=== PATIENT | female | born 1975 | race Two or more races ===

== ENCOUNTER 2016-12-30 20:47 | Emergency (ER) | payer OTHER ==
[2016-12-30 20:57] VITALS: RESP 16; TEMP 98.1
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
[2016-12-30] MEDS ORDERED: ACETAMINOPHEN 500 MG TAB PO ONE (21:35)
[2016-12-30 22:15] VITALS: BP 102/88; PULSE 76; O2SAT 95
== END 2016-12-30 22:14 | disposition home or self-care (01) ==
LOC: EDUNIT#
DX: S29.9XXA Unspecified injury of thorax, initial encounter (principal); F17.200 Nicotine dependence, unspecified, uncomplicated; X58.XXXA Exposure to other specified factors, initial encounter

== ENCOUNTER 2017-01-24 15:25 | Emergency (ER) | payer MEDICAID ==
--- NOTE | 2017-01-24 15:34 | EDPHY ---
H & P Time Seen by Provider: 01/24/17 15:29 HPI/ROS: CHIEF COMPLAINT: Fall, loss of consciousness, paresthesias HISTORY OF PRESENT ILLNESS: The patient is a 41-year-old female who presents emergency department with multiple complaints after sustaining a fall. She was on a tailgate and fell back approximately 3 feet. She states she struck her head lost consciousness. It is unclear exactly how long she was unconscious. Upon waking she complained of numbness and tingling in both hands and feet. Upon arrival to the emergency department she complains of numbness in her right hand and left foot. She has no weakness. EMS reports patient was hemodynamically stable. Patient denies headache or neck pain at this time. No chest pain or shortness of breath. No abdominal pain. No hip pain or discomfort with movement of her extremities per report. Glucose was 95. REVIEW OF SYSTEMS: My complete review of systems is negative except as mentioned in the HPI. Past Medical/Surgical History: Bipolar disorder, thyroid disease Past surgical history: Includes hysterectomy, tubal ligation Social History: Patient smokes. She denies drugs or alcohol. Smoking Status: Current every day smoker Physical Exam: Vitals noted GENERAL: Well-appearing, in no acute distress, alert. HEAD: No evidence of trauma. EYES: PERRLA, EOMI, normal to inspection. ENT: Airway intact, no dental or oral injury, no malocclusion, normal external examination. NECK: The trachea is midline. There is no crepitus. The C-spine is nontender. RESPIRATORY: Clear to auscultation bilaterally, no rales, rhonchi or wheezing. There is no crepitus or palpable rib fractures. CVS: Regular rate and rhythm, no rubs, murmurs, or gallops. ABDOMEN: Soft, nontender, nondistended, normal bowel sounds, no bruising or abrasions. Pelvis: Stable. No tenderness palpation. Hips full range of motion. BACK: Normal to inspection, no spinal tenderness, no spinal step off, no notable bruising or abrasions. SKIN: Normal color, warm, dry. No pallor or diaphoresis. EXTREMITIES: Right upper extremity: Atraumatic. No visible signs of trauma. No tenderness palpation. Neurovascular intact distally. Left upper extremity: Atraumatic. No visible signs of trauma. No tenderness palpation. Neurovascular intact distally. Right lower extremity: Atraumatic. No visible signs of trauma. No tenderness palpation. Neurovascular intact distally. Left lower extremity: Patient's left lower extremity appears normal. There is no deformity to her foot or leg. She has mild tenderness to palpation diffusely over her left foot. Neurovascular intact distally. NEURO/PSYCH: Alert and oriented x 3, GCS 15, normal mood and affect, normal motor sensory exam. (Patient's exam was unremarkable. However, the patient does still state that her right hand and left foot "feels asleep." Constitutional: Initial Vital Signs Temperature (C) 37.1 C 01/24/17 15:42 Heart Rate 61 01/24/17 15:42 Respiratory Rate 18 01/24/17 15:42 Blood Pressure 130/80 H 01/24/17 15:42 O2 Sat (%) 100 01/24/17 15:42 O2 Delivery Mode Nasal Cannula O2 (L/minute) 2 Allergies/Adverse Reactions: morphine Allergy (Verified 01/24/17 15:45) Home Medications: Medication Instructions Recorded Synthroid 12/30/16 Medical Decision Making - Diagnostics Imaging Results: Imaging Impressions Cervical Spine CT 01/24/17 15:29 Impression: There is no acute abnormality identified on this unenhanced CT evaluation. UNENHANCED CT SCAN OF THE CERVICAL SPINE Technique: A multidetector unenhanced helical CT scan was obtained from the clivus caudally through the upper thoracic spine, with images reformatted at 1.50 mm increments, and are reviewed in soft tissue, bone, and lung windows. Parasagittal and paracoronal reconstructed images are reviewed on the workstation. The DFOV is 13.5 cm. A dose reduction protocol was used. Comparison Study: None. Findings: The cervical vertebral body heights, posterior alignments, and the disk spaces are preserved. There is a mild levocervical curvature, which may reflect some underlying muscle spasm. There is no acute fracture, or facet malalignment. The interspinous distances are normal. The craniocervical junction is normal. The predental space, and the atlantoaxial lateral mass alignment is normal. The base and the tip of the dens are normal. There is no central canal stenosis, neural foraminal impingement, or focal disk herniation identified. There is no prevertebral or epidural hematoma identified. The prevertebral soft tissues are normal, as are the lung apices. Impression: 1. There is no acute cervical osseous abnormality identified. 2. Mild levocervical scoliosis, which may reflect some underlying muscle spasm. If there is further clinical concern regarding the patient's paresthesias, correlative MR imaging could be considered, if otherwise not contraindicated. Findings were discussed with ESTER FRANCO MD at 16:00, on 01/24/2017. Foot X-Ray 01/24/17 15:29 Impression: There is no acute osseous abnormality. If there is further concern regarding patient's knee pain, MR imaging could be considered. LEFT FOOT (3 Views, at 4:01 PM): The point of maximal tenderness has not been indicated in the clinical history. Bone mineralization is preserved. There is a transversely-oriented mildly irregular lucency through the midportion of the medial great toe sesamoid bone, which could represent a fracture or a bipartite variant; clinical correlation is suggested. There are some minor degenerative changes at the first toe MTP joint. There is a small plantar calcaneal enthesophyte. The tarsometatarsal alignment is anatomic. There is no ankle joint effusion appreciated. Impression: Fracture versus bipartite variant involving the great toe medial sesamoid bone. Clinical correlation is suggested. Head CT 01/24/17 15:29 Impression: There is no acute abnormality identified on this unenhanced CT evaluation. UNENHANCED CT SCAN OF THE CERVICAL SPINE Technique: A multidetector unenhanced helical CT scan was obtained from the clivus caudally through the upper thoracic spine, with images reformatted at 1.50 mm increments, and are reviewed in soft tissue, bone, and lung windows. Parasagittal and paracoronal reconstructed images are reviewed on the workstation. The DFOV is 13.5 cm. A dose reduction protocol was used. Comparison Study: None. Findings: The cervical vertebral body heights, posterior alignments, and the disk spaces are preserved. There is a mild levocervical curvature, which may reflect some underlying muscle spasm. There is no acute fracture, or facet malalignment. The interspinous distances are normal. The craniocervical junction is normal. The predental space, and the atlantoaxial lateral mass alignment is normal. The base and the tip of the dens are normal. There is no central canal stenosis, neural foraminal impingement, or focal disk herniation identified. There is no prevertebral or epidural hematoma identified. The prevertebral soft tissues are normal, as are the lung apices. Impression: 1. There is no acute cervical osseous abnormality identified. 2. Mild levocervical scoliosis, which may reflect some underlying muscle spasm. If there is further clinical concern regarding the patient's paresthesias, correlative MR imaging could be considered, if otherwise not contraindicated. Findings were discussed with ESTER FRANCO MD at 16:00, on 01/24/2017. Knee X-Ray 01/24/17 15:57 Impression: There is no acute osseous abnormality. If there is further concern regarding patient's knee pain, MR imaging could be considered. LEFT FOOT (3 Views, at 4:01 PM): The point of maximal tenderness has not been indicated in the clinical history. Bone mineralization is preserved. There is a transversely-oriented mildly irregular lucency through the midportion of the medial great toe sesamoid bone, which could represent a fracture or a bipartite variant; clinical correlation is suggested. There are some minor degenerative changes at the first toe MTP joint. There is a small plantar calcaneal enthesophyte. The tarsometatarsal alignment is anatomic. There is no ankle joint effusion appreciated. Impression: Fracture versus bipartite variant involving the great toe medial sesamoid bone. Clinical correlation is suggested. Cervical Spine MRI 01/24/17 16:07 Impression: Basically normal MRI of the cervical spine, without evidence for acute injury or significant degenerative change. Findings and recommendations discussed with Ester Franco M.D., at 1800 hours, on January 24, 2017. Final report concurs with initial preliminary interpretation. ED Course/Re-evaluation: I met EMS on arrival. I took report from the information management specialist. Full trauma team activation. Dr. Cast was also present in the room. I discussed the plan with the patient and answered all her questions. Patient will have a head and C-spine CT. X-ray of her left foot will be performed. Initial i-STAT: Sodium 144, potassium 3.7, chloride 106, glucose 81, BUN 24, creatinine 1.0, hematocrit 41, anion gap 18 I re-evaluate the patient when she returned from CT imaging. She had no new paresthesias or weakness. Neuro exam was nonfocal. She complained of mild knee pain. Knee x-ray was ordered. Head and C-spine CT: Please refer the dictated report by Dr. Ricardo Enriquez. I spoke with Dr. Enriquez on the phone. He saw no acute injury. He agreed with the plan for MRI imaging. This was ordered. Patient's laboratory studies were unremarkable. Hematocrit was normal. Coags were normal. negative. 1645: The patient complained the mild discomfort. She is given Toradol 30 mg IV. Knee x-ray: Please refer the dictated report. No acute disease noted. Left foot x-ray: Please refer the dictated report. Possible fracture verses variant. 18 10: Please refer the dictated report by Dr. Barrios. The patient's cervical MRI was negative. No acute disease noted. I discussed all the results with the patient. She had no focal neurologic deficit on exam. Her C-collar was removed. On reexamination no respiratory distress. Her abdomen was benign. No back TTP. Patient was placed in a L Carlos boot. (see xray result above). She will follow up with Orthopedics. She is aware of the need for close follow-up. She is given crutches and instruction on use. The patient was given warnings prior to leaving. She will return with worsening symptoms. Differential Diagnosis: My differential includes but is not limited to spinal injury, disc herniation, cord injury, subarachnoid hemorrhage, subdural hematoma, epidural hematoma, foot fracture, foot contusion - Data Points Laboratory Results: Laboratory Results 01/24/17 15:00 01/24/17 15:00 01/24/17 01/24/17 01/24/17 15:22 15:00 15:00 WBC RBC Hgb POC Hgb 13.9 gm/dL gm/dL (12.6-16.3) Hct POC Hct 41 % % (38-47) MCV MCH MCHC RDW Plt Count MPV Neut % (Auto) Lymph % (Auto) [place] % (Auto) Eos % (Auto) Baso % (Auto) Nucleat RBC Rel Count Absolute Neuts (auto) Absolute Lymphs (auto) Absolute Monos (auto) Absolute Eos (auto) Absolute Basos (auto) Absolute Nucleated RBC Immature Gran % Immature Gran # PT INR APTT POC Sodium 144 mEq/L mEq/L (134-144) Sodium 143 mEq/L mEq/L (134-144) POC Potassium 3.7 mEq/L mEq/L (3.3-5.0) Potassium 3.9 mEq/L mEq/L (3.5-5.2) POC Chloride 106 mEq/L mEq/L (97-110) Chloride 108 mEq/L mEq/L (97-110) Carbon Dioxide 23 mEq/l mEq/l (22-31) Anion Gap 12 mEq/L mEq/L (8-16) POC BUN 24 mg/dL H mg/dL (7-23) BUN 25 mg/dL H mg/dL (7-23) Creatinine 0.9 mg/dL mg/dL (0.6-1.0) POC Creatinine 1.0 mg/dL mg/dL (0.6-1.0) Estimated GFR > 60 Glucose 78 mg/dL mg/dL (70-100) POC Glucose 81 mg/dL mg/dL (70-100) Calcium 9.4 mg/dL mg/dL (8.5-10.4) Beta HCG, Qual NEGATIVE Ethyl Alcohol < 10 mg/dL mg/dL (0-10) 01/24/17 01/24/17 15:00 15:00 WBC 5.85 10^3/uL 10^3/uL (3.80-9.50) RBC 4.28 10^6/uL 10^6/uL (4.18-5.33) Hgb 14.0 g/dL g/dL (12.6-16.3) POC Hgb Hct 40.2 % % (38.0-47.0) POC Hct MCV 93.9 fL fL (81.5-99.8) MCH 32.7 pg pg (27.9-34.1) MCHC 34.8 g/dL g/dL (32.4-36.7) RDW 12.1 % % (11.5-15.2) Plt Count 256 10^3/uL 10^3/uL (150-400) MPV 9.9 fL fL (8.7-11.7) Neut % (Auto) 38.2 % L % (39.3-74.2) Lymph % (Auto) 46.7 % H % (15.0-45.0) [place] % (Auto) 10.1 % % (4.5-13.0) Eos % (Auto) 4.3 % % (0.6-7.6) Baso % (Auto) 0.5 % % (0.3-1.7) Nucleat RBC Rel Count 0.0 % % (0.0-0.2) Absolute Neuts (auto) 2.24 10^3/uL 10^3/uL (1.70-6.50) Absolute Lymphs (auto) 2.73 10^3/uL 10^3/uL (1.00-3.00) Absolute Monos (auto) 0.59 10^3/uL 10^3/uL (0.30-0.80) Absolute Eos (auto) 0.25 10^3/uL 10^3/uL (0.03-0.40) Absolute Basos (auto) 0.03 10^3/uL 10^3/uL (0.02-0.10) Absolute Nucleated RBC 0.00 10^3/uL 10^3/uL (0-0.01) Immature Gran % 0.2 % % (0.0-1.1) Immature Gran # 0.01 10^3/uL 10^3/uL (0.00-0.10) PT 12.7 SEC SEC (12.0-15.0) INR 0.96 (0.83-1.16) APTT 30.6 SEC SEC (23.0-38.0) POC Sodium Sodium POC Potassium Potassium POC Chloride Chloride Carbon Dioxide Anion Gap POC BUN BUN Creatinine POC Creatinine Estimated GFR Glucose POC Glucose Calcium Beta HCG, Qual Ethyl Alcohol Point of Care Test Results: 01/24/17 15:22 POC Sodium 144 POC Potassium 3.7 POC Chloride 106 POC BUN 24 H POC Creatinine 1.0 POC Glucose 81 Departure - Departure Disposition: Home, Routine, Self-Care Clinical Impression: Contusion of foot, left Qualifiers: Encounter type: initial encounter Qualified Code(s): S90.32XA - Contusion of left foot, initial encounter Cervical strain, acute Qualifiers: Encounter type: initial encounter Qualified Code(s): S16.1XXA - Strain of muscle, fascia and tendon at neck level, initial encounter Condition: Good Instructions: Foot Fracture in Adults (ED), Cervical Strain (ED) Additional Instructions: The x-ray of her knee showed no broken bones. Your left foot showed a possible fracture of the sesamoid bone. This could also be a normal variant. You been placed in the splint and need close follow-up with Orthopedics for this. Your CT scan of the head and neck were normal. Your MRI of the cervical spine was normal. Return with worsening symptoms. Referrals: Neftali Newton MD [Medical Doctor] - 5-7 days, call for appt.
[2017-01-24 15:38] LABS: % IMMATURE GRANULYOCYTES 0.2 % (0.0-1.1); ABSOLUTE IMMATURE GRANULOCYTES 0.01 10^3/uL (0.00-0.10); ADD DIFF? NO; ADD MORPH? NO; ADD SCAN? NO; ATYPICAL LYMPHOCYTE FLAG 0 (0-99); FRAGMENT RBC FLAG 0 (0-99); HEMATOCRIT 40.2 % (38.0-47.0); LEFT SHIFT FLG 0 (0-99); LIPEMIA HEMOLYSIS FLAG 90 (0-99); MEAN CELL HEMOGLOBIN 32.7 pg (27.9-34.1); MEAN CELL HEMOGLOBIN CONCENTR. 34.8 g/dL (32.4-36.7); MEAN CELL VOLUME 93.9 fL (81.5-99.8); MEAN PLATELET VOLUME 9.9 fL (8.7-11.7); PLATELET CLUMPS FLAG 0 (0-99); PLATELET COUNT 256 10^3/uL (150-400); RED BLOOD CELL COUNT 4.28 10^6/uL (4.18-5.33); RED CELL DISTRIBUTION WIDTH 12.1 % (11.5-15.2)
[2017-01-24 15:48] LABS: INR 0.96 (0.83-1.16); PROTIME(PATIENT) 12.7 SEC (12.0-15.0)
[2017-01-24 15:49] LABS: APTT 30.6 SEC (23.0-38.0)
[2017-01-24 15:55] LABS: ANION GAP 12 mEq/L (8-16); CALCIUM 9.4 mg/dL (8.5-10.4); CARBON DIOXIDE 23 mEq/l (22-31); CHLORIDE 108 mEq/L (97-110); CREATININE 0.9 mg/dL (0.6-1.0); ETHANOL SERUM < 10 mg/dL (0-10); GLOMERULAR FILTRATION RATE > 60; GLUCOSE 78 mg/dL (70-100); POTASSIUM 3.9 mEq/L (3.5-5.2); SODIUM 143 mEq/L (134-144)
[2017-01-24 18:50] VITALS: BP 120/72; PULSE 74; RESP 16; TEMP 98.1; O2SAT 97
--- NOTE | 2017-01-28 09:42 | GCON ---
[f rep st] CONSULTATION DATE OF CONSULTATION: 01/24/2017 CHIEF COMPLAINT: Fall with loss of consciousness and paresthesias. HISTORY OF PRESENT ILLNESS: This is a 41-year-old female who presented to the trauma bay at [facility] as a full trauma activation. Per EMS and patient report, 2 hours prior to h er presentation she was standing on the back of what appeared to be a tailgate and fell back approxi mately 3 feet. She does state that she struck her head and did lose consciousness. It is unclear h ow long she was unconscious, but the patient said that it was multiple minutes. Upon waking, she co mplained of numbness and tingling in both hands and feet on both sides. Given her complaint, she wa s made a full trauma activation. The patient had really no reasons why she waited 2 hours to call E [facility] after falling. In the trauma bay, I met the patient on arrival. Upon being transferred to the [facility], I performed a primary assessment. She was protecting her airway. She had adequate b reathing and adequate circulation. Other than complaining of headache and paresthesias within her r ight upper and left lower extremity, she had really no other complaints. She stated that the parest hesias started after she woke up after falling and that she had complete intact sensation, although she had tingling in these extremities. PAST MEDICAL HISTORY: Bipolar disease and thyroid. PAST SURGICAL HISTORY: Hysterectomy and tubal ligation. SOCIAL HISTORY: Patient is a smoker. She denies drugs or alcohol. Currently is in a [facility] . REVIEW OF SYSTEMS: A full 10-point review of systems was performed. PHYSICAL EXAM: VITAL SIGNS: Temperature is 37.1 heart rate 97, blood pressure 130/80, and she is 9 6% on room air. GENERAL: She is well-appearing, in no acute distress. HEAD: No evidence of traum a. EYES: Pupils are equal, round, and reactive to light with extraocular movements intact, with no scleral icterus. ENT: Her airway is intact. No dental or oral injury. Mucous membranes are mois t. NECK: The trachea is midline. There is no crepitus. The C-spine is nontender to posterior mid line compression. RESPIRATORY: She is clear to auscultation bilaterally with no rales or wheezing. There is no crepitus or palpable abnormalities. CV: She has a regular rate and rhythm with no mu rmurs or rubs. ABDOMEN: Obese, soft, nondistended, nontender. PELVIS: Stable to both AP and late ral compression. BACK: Normal to inspection. SKIN: Normal color, warm and dry. [facility] No tenderness. She does complain of paresthesias within the ent bibi right upper extremity. Left upper extremity is normal. Right lower extremity is normal. Left lower extremity appears normal. There is no deformity. She has mild tenderness to palpation diffus k[place]illa over her left foot and she complains of tingling in the left foot up to the level of the midcalf . NEURO: She is alert and oriented, has a normal mood and affect. Again, the patient states that "it feels that her right hand and left foot fell asleep." LABS: Include a CBC which was unremarkable and a chemistry which was unremarkable. Tox screen show s negative ethyl alcohol. IMAGING: Performed, which includes a CT head and C-spine which were unremarkable. MRI of the C-spi ne was also performed which shows no acute traumatic injury. Knee and foot x-rays were both perform ed which showed a great toe fracture in the left foot, but no other significant injuries. All of [facility] images were personally reviewed by me. ASSESSMENT AND PLAN: A 41-year-old female, status post fall. Patient had an extensive workup in [facility] emergency department and currently has no traumatic reason why she has the paresthesias. These we re monitored and resolved over her stay in the trauma bay. The patient was subsequently ambulated i n the trauma bay and she was feeling well. She was p.o. challenged and did fine. She was subsequen y discharged home with followup for orthopedics. She will see Dr. Newton as an outpatient basis for her toe fracture. /[id number]/MODL
== END 2017-01-24 18:50 | disposition home or self-care (01) ==
LOC: EDUNIT#
DX: S90.32XA Contusion of left foot, initial encounter (principal); S16.1XXA Strain of muscle, fascia and tendon at neck level, initial encounter; F17.200 Nicotine dependence, unspecified, uncomplicated; W18.00XA Striking against unspecified object with subsequent fall, initial encounter
CPT/HCPCS: 82947-QW; G0480; L4386

== ENCOUNTER 2017-08-27 16:42 | Emergency (ER) | payer MEDICAID ==
[2017-08-27 16:48] VITALS: BP 139/89; PULSE 77; RESP 17; TEMP 98.2; O2SAT 99
--- NOTE | 2017-08-27 17:13 | EDPHY ---
H & P Time Seen by Provider: 08/27/17 16:53 HPI/ROS: CHIEF COMPLAINT: Right heel pain HISTORY OF PRESENT ILLNESS: This patient is a 42 y/o female complaining of right heel pain. Her heel has been hurting for a long time, but today she was unable to walk on it due to pain. She denies any recent trauma or injury. She does not think she stepped on anything. 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 She had surgery on the sesamoid bones of her left foot four months ago, but has not followed up regarding her right foot pain. She has no further complaints. ROS: No numbness, weakness, bleeding, syncopal episode, other injury. Past Medical/Surgical History: Hypothyroid Bipolar Hysterectomy Social History: Daily tobacco use. Lives in [place]. Single. Smoking Status: Current every day smoker Physical Exam: Alert and pleasant Extremities: Right heel: tenderness and swelling on the medial aspect at the junction of heel and arch Skin: Intact, no lacerations or abrasions Neuro: Motor and sensory intact Vascular: Capillary refill brisk distally Constitutional: Initial Vital Signs Temperature (C) 36.8 C 08/27/17 16:46 Heart Rate 77 08/27/17 16:46 Respiratory Rate 17 08/27/17 16:46 Blood Pressure 139/89 H 08/27/17 16:46 O2 Sat (%) 99 08/27/17 16:46 O2 Delivery Mode Room Air Allergies/Adverse Reactions: morphine Allergy (Verified 08/27/17 16:44) Home Medications: Medication Instructions Recorded Synthroid 12/30/16 Ibuprofen 800 mg PO TID PRN #30 tablet 08/27/17 [place] Carbonate 08/27/17 Zoloft 100mg (*) 08/27/17 Medical Decision Making - Diagnostics Imaging Results: Imaging Impressions Foot X-Ray 08/27/17 17:08 Impression: 1. No acute osseous abnormality seen about the left foot. 2. Calcaneal spurs. 3. Moderate bunion distal head of the first metatarsal with hallux valgus X-ray independently reviewed by me reveals no acute fracture and no foreign body. ED Course/Re-evaluation: 42 y/o female presents with ongoing right heel pain, worse today. Exam reveals tenderness and swelling on the medial aspect at the junction of heel and arch. Plan for x-ray to r/o acute osseous abnormalities or other processes. Xray negative. No evidence of fx or FB. Presentation c/w plantar fasciitis. Ibuprofen rx given at pt request. Will f/u sanitation superintendent. Departure - Departure Disposition: Home, Routine, Self-Care Clinical Impression: Foot pain, right Condition: Good Instructions: Crutch Instructions (ED), Plantar Fasciitis (ED) Additional Instructions: Ibuprofen 600 mg 3 times daily while the pain persists. Referrals: Beka Santillan MD [Doctor of Podiatric Medicine] - As per Instructions (Call to make an appointment with your sanitation superintendent. ) Prescriptions: Ibuprofen 800 mg PO TID PRN #30 tablet PRN Reason: pain Report Scribed for: Jonna Reaves Report Scribed by: Haven Yoon Date of Report: 08/27/17 Time of Report: 17:17 Physician Review and Approval Statement: 08/27/17 17:17 Portions of this note were transcribed by a medical care evaluation specialist. I personally performed a history, physical exam, medical decision making, and confirmed accuracy of information the transcribed note.
== END 2017-08-27 17:36 | disposition home or self-care (01) ==
DX: M79.671 Pain in right foot (principal); F17.200 Nicotine dependence, unspecified, uncomplicated

== ENCOUNTER 2018-07-24 10:37 | Emergency (ER) | payer SELFPAY ==
[2018-07-24 12:10] LABS: PLATELET COUNT 284 10^3/uL (150-400)
--- NOTE | 2018-07-24 13:57 | EDPHY ---
H & P Smoking Status: Current every day smoker Time Seen by Provider: 07/24/18 13:50 HPI/ROS: HPI Depression, suicidal ideation. 42-year-old female by ambulance. She reports that she is currently living on the streets. She reports that she has recently felt more depressed and has had suicidal thoughts. She does not have a plan of action regarding her suicidal thoughts. She cannot give me a specific reason why she has been feeling this way. She states that her life is been very hard lately. She reports that she used methamphetamine yesterday. She denies any alcohol or other drug abuse. No history of assault. She has no other complaints. ROS: Constitutional: No fever, no chills. No weakness. Eyes: No discharge. No changes in vision. ENT: No sore throat. No nasal congestion or rhinorrhea. Respiratory: No cough. No shortness of breath. Cardiac: No chest pain, no palpitations. Gastrointestinal: No abdominal pain, no vomiting, no diarrhea. Genitourinary: No hematuria. No dysuria or increased frequency with urination. Musculoskeletal: No back pain. No neck pain. No myalgias or arthralgias. Skin: No rashes. Neurological: No headache. No focal weakness or altered sensation. Past medical history: Hypothyroid, bipolar, hysterectomy, PTSD. She is a [facility] client. Social history: Smoker. Homeless. Methamphetamine abuse. Physical Exam: General Appearance: Alert, flat affect. This patient is responding to questions appropriately and in full sentences. This patient appears well- hydrated and well-nourished. Head: Normocephalic atraumatic. Eyes: Pupils equal and round no pallor or injection. No lid edema, erythema or injection. Respiratory: There are no retractions, lungs are clear to auscultation with good air movement bilaterally. Cardiovascular: Regular rate and rhythm. No murmur. Gastrointestinal: Abdomen is soft and nontender, no masses, bowel sounds normal. No focal tenderness at McBurney's point. No Case sign. Neurological: Motor sensory function is grossly intact. Cranial nerves are normal. Gait is normal. Skin: Warm and dry, no rashes. Musculoskeletal: Neck is supple and nontender. Extremities are symmetrical. All joints range without pain or impingement. Psychiatric: No agitation. No depression. Database: EKG: Imaging: Procedures: Emergency department course: Triage vital signs reviewed. She is mildly tachycardic and moderately hypertensive. Vital signs are otherwise normal. She is afebrile. She was medically cleared by myself for behavioral health evaluation at 2:00 p.m.. [facility] is aware. The patient is on a detainer. 3:00 p.m., patient is awaiting behavioral health evaluation. Care turned over to Dr. Franco. Differential Diagnosis: The differential diagnosis on this patient includes but is not limited to bipolar, situational depression, major depression, suicidal ideation. This represents a partial list of diagnoses considered. These considerations are based on history, physical exam, past history, reassessment and diagnostic testing. (David Pimentel) Constitutional: Initial Vital Signs Temperature (C) 37 C 07/24/18 10:38 Heart Rate 109 H 07/24/18 10:38 Respiratory Rate 18 07/24/18 10:38 Blood Pressure 148/95 H 07/24/18 10:38 O2 Sat (%) 98 07/24/18 10:38 O2 Delivery Mode Room Air Allergies/Adverse Reactions: morphine Allergy (Verified 08/27/17 16:44) Home Medications: Medication Instructions Recorded Synthroid 12/30/16 Medical Decision Making ED Course/Re-evaluation: 1500: Patient is signed out to me at change of shift by Dr. Pimentel. Patient is awaiting psychiatric Services evaluation. Patient is stable. 2030: The patient was evaluated by Psychiatric Services. They recommended admission. Patient is slightly anxious about being admitted. He went to re- evaluate the patient in the emergency department in the morning. Patient was placed on an M1 hold. She is given Ativan 1 mg p.o. The patient is signed out at change of shift. Awaiting repeat evaluation by pyschiatric services. (Ester Franco) [id number]: No acute events overnight patient is sleeping most tonight. She is on M1 hold for suicidal ideation. She did receive 1 mg Ativan prior to 10:00 p.m. And slept most tonight. At this time she has no complaints. She is pending inpatient psychiatric placement most likely [facility] this morning Signed over at 7:00 a.m. Shift change to Dr. Handley. (Matt Phillips) Other Provider: 0930: Per Ar[place] from [facility], patient has been re-evaluated and is now safe for discharge. They have lifted the hold. (David Handley) - Data Points Laboratory Results: Laboratory Results 07/24/18 11:50 07/24/18 11:50 Medications Given: Discontinued Medications Lorazepam (Ativan) 1 mg PO ONCE ONE Stop: 07/24/18 20:31 Last Admin: 07/24/18 21:56 Dose: 1 mg Departure - Departure Disposition: Home, Routine, Self-Care Clinical Impression: Suicidal ideation Depression Qualifiers: Depression Type: unspecified Qualified Code(s): F32.9 - Major depressive disorder, single episode, unspecified Condition: Good Instructions: Depression (ED) Referrals: NONE *PRIMARY CARE P,. [Primary Care Provider] - As per Instructions
[2018-07-24] MEDS ORDERED: LORazepam 1 MG TAB PO ONE (20:30)
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
--- NOTE | 2018-07-25 09:51 | ASMTTCLDSP ---
TLC Discharge Disposition Disposition: Answers: Discharge If Answers: Yes DISCHARGED: Patient/family given suicide hotline info & [facility] brochure? Disposition Notes: Notes: Pt stated commitment or ability to keep self safe, denied thoughts of self harm or harm to others. Pt expressed a desire to f/u with [facility]. Pt was given local hotline information and [facility] brochure After an Attempt and encouraged to follow up with [facility]. Discharge Concerns/Recommendations: Notes: In consultation with [facility] ED physician, David Handley MD, Dr. Handley concurred that pt does not appear to meet 27-65 criteria requiring psychiatric hospitalization as pt does not appear to be an imminent risk of harm to self/others/gravely disabled due to a mental illness condition. Dr. Handley provided telephone order read back vacating M1 hold at 0930 hrs. Was patient given the Answers: Not applicable Inpatient Behavioral Health Prohibited Belongings List while in the ED? Psychiatrist vacating M1 David Handley MD Hold: Date and time M1 hold 07/25/2018 09:30 AM vacated (time format is hh:mm): Type of Hold: Answers: M1/72-hour Hold Hold initiated by: Answers: ED Physician Date Signed: 07/25/2018 09:50 AM Electronically Signed By:Arsenio Pavon
[2018-07-25 10:14] VITALS: BP 123/64
== END 2018-07-25 10:10 | disposition home or self-care (01) ==
DX: R45.851 Suicidal ideations (principal); F32.9 Major depressive disorder, single episode, unspecified; E03.9 Hypothyroidism, unspecified; Z59.0 Homelessness
CPT/HCPCS: 80305; G0480